=== PATIENT | female | born 1975 ===

== ENCOUNTER 2023-08-07 08:00 | Day surgery (SDC) | payer OTHER | END 2023-08-07 23:59 | disposition home or self-care (01) | LOC: WOUND 08:00 | DX: S91.302D Unspecified open wound, left foot, subsequent encounter (principal); Z88.1 Allergy status to other antibiotic agents | CPT/HCPCS: A9270; G0463 ==

== ENCOUNTER → 2023-08-14 | Outpatient (CLI) | payer OTHER | LOC: LAB EV 07:33 → LAB SHORT 07:33 | DX: L40.8 Other psoriasis (principal); L30.8 Other specified dermatitis | CPT/HCPCS: 88305; 88312 ==

== ENCOUNTER → 2024-06-23 | Outpatient (CLI) | payer OTHER | LOC: LAB SHORT 09:16 → LAB 09:16 | DX: N39.0 Urinary tract infection, site not specified (principal) | CPT/HCPCS: 87077; 87086; 87186 ==

== ENCOUNTER → 2025-09-16 | Outpatient (CLI) | payer OTHER | LOC: LAB 17:12 | DX: N39.0 Urinary tract infection, site not specified (principal) ==